=== PATIENT | male | born 1985 | race Caucasian/White ===

== ENCOUNTER 2020-09-15 17:12 | Emergency (ER) | payer SELFPAY ==
[~2020-09-15] VITALS: Ht 160 cm; Wt 70.4 kg
[2020-09-15] MEDS ORDERED: TETANUS, DIPHTHERIA, PERTUSSIS VAC/PF 0.5ML (>7YR OLD) IM ONE (18:45)
[2020-09-15] MEDS ORDERED: ACETAMINOPHEN 325MG TABLET PO ONE (18:45)
[2020-09-15] MEDS ORDERED: LIDOCAINE HCL/EPINEPHRINE 1%-EPI 1:100,000 20 ML VIAL INFIL ONE (18:45)
[2020-09-15 20:58] VITALS: BP 120/79
== END 2020-09-15 20:59 | disposition home or self-care (01) ==
LOC: ER 17:12
DX: S01.01XA Laceration without foreign body of scalp, initial encounter (principal); Y08.02XA Assault by strike by baseball bat, initial encounter; Y93.89 Activity, other specified; Y92.89 Other specified places as the place of occurrence of the external cause; Z23 Encounter for immunization; I50.9 Heart failure, unspecified; I25.10 Atherosclerotic heart disease of native coronary artery without angina pectoris
CPT/HCPCS: 12014; 70450; 90471; 90715; 93005; 99284; J3490

== ENCOUNTER 2020-09-20 10:33 | Emergency (ER) | payer MEDICAID ==
[~2020-09-20] VITALS: Ht 154.9 cm; Wt 72.0 kg
[2020-09-20 11:26] VITALS: BP 119/81
== END 2020-09-20 11:28 | disposition home or self-care (01) ==
LOC: ER 10:33
DX: Z48.00 Encounter for change or removal of nonsurgical wound dressing (principal)
CPT/HCPCS: 99281

== ENCOUNTER 2020-10-04 11:44 | Emergency (ER) | payer MEDICAID ==
[~2020-10-04] VITALS: Ht 160 cm; Wt 69.0 kg
[2020-10-04 11:45] VITALS: BP 118/74
== END 2020-10-04 12:30 | disposition home or self-care (01) ==
LOC: ER 11:44
DX: Z48.02 Encounter for removal of sutures (principal)
CPT/HCPCS: 99281; Z7610

== ENCOUNTER 2021-12-20 23:12 | Inpatient (IN) | payer SELFPAY ==
[~2021-12-20] VITALS: Ht 165.1 cm; Wt 80.0 kg
[2021-12-21] MEDS ORDERED: MORPHINE SULFATE 4 MG/ML CPJ (NOT FOR IM USE) IV STA (00:08)
[2021-12-21] MEDS ORDERED: ONDANSETRON HCL 4MG/2ML INJ IV STA (00:08)
[2021-12-21] MEDS ORDERED: CARVEDILOL 3.125 MG TABLET PO ONE (00:15)
[2021-12-21] MEDS ORDERED: CEFTRIAXONE 1 G PREMIX 50 ML IV ONE (00:15)
[2021-12-21] MEDS ORDERED: AZITHROMYCIN 500MG/250ML 250 ML IV ONE (00:15)
[2021-12-21] MEDS ORDERED: FUROSEMIDE 40MG/4ML VIAL IVP ONE (00:15)
[2021-12-21] MEDS ORDERED: DEXAMETHASONE 10 MG/ML VIAL IV ONE (01:15)
[2021-12-21 01:29] LABS: BASOPHILS % 0.2 % (0.0-2.0); HEMATOCRIT. 44.6 % (42.0-52.0); HEMOGLOBIN. 14.9 g/dL (14.0-18.0); LYMPHOCYTES % 9.4 % (20.0-50.0); MEAN CORPUSCULAR HEMOGLOBIN 28.7 pg (28.0-32.0); MEAN CORPUSCULAR VOLUME 86.1 fL (80.0-94.0); MEAN PLATELET VOLUME 10.9 fl (7.4-10.4); MONOCYTES % 2.4 % (2.0-8.0); PLATELET 91 x1000/uL (130-400); RED BLOOD CELL COUNT 5.18 mill/uL (4.7-6.1); RED CELL DISTRIBUTION WIDTH 15.6 % (11.6-14.6)
[2021-12-21 03:08] LABS: CHLORIDE 89 mEq/L (98-107)
[2021-12-21] MEDS ORDERED: SODIUM CHLORIDE 0.9% 500 ML IV NR (03:15)
[2021-12-21] MEDS ORDERED: POTASSIUM CHLORIDE INJ 40 MEQ in DEXT 5% WATER 250 ML IV ONE (03:15)
[2021-12-21] MEDS ORDERED: POTASSIUM CHLORIDE 20MEQ TABLET SR PO NR (03:15)
[2021-12-21] MEDS ORDERED: NOREPINEPHRINE 8 MG in DEXT 5% WATER 242 ML IV PRN (04:45)
[2021-12-21] MEDS ORDERED: EPINEPHRINE 5 MG in SODIUM CHLORIDE 0.9% 245 ML IV STA (04:52)
[2021-12-21] MEDS ORDERED: NOREPINEPHRINE 8MG/250ML PMX 250 ML IV STA (04:52)
[2021-12-21] MEDS ORDERED: VASOPRESSIN 20 UNIT in SODIUM CHLORIDE 0.9% 99 ML STA (04:52)
[2021-12-21] MEDS ORDERED: SODIUM CHLORIDE 0.9% 1,000 ML IV ONE (05:00)
[2021-12-21] MEDS ORDERED: VASOPRESSIN 20 UNIT in SODIUM CHLORIDE 0.9% 99 ML IV PRN (05:30)
[2021-12-21] MEDS: KCL 20MEQ/100ML X 2 FOR TOTAL KCL 40MEQ/200ML IV SCH ×2 (05:30→06:59)
[2021-12-21] MEDS: EPINEPHRINE 5 MG in SODIUM CHLORIDE 0.9% 245 ML IV PRN ×2 (05:43→09:02)
[2021-12-21 06:48] LABS: BG BASE EXCESS -15.9 mmol/L (-2.0-2.0); BG DEOXYHEMOGLOBIN 52.9 % (0.0-5.0); BG FRACTION INSPIRED OXYGEN 100; BG HCO3 ACT 15.9 mmol/L (22.0-26.0); BG METHEMOGLOBIN 0.2 % (0.0-1.5); BG OXYGEN SATURATION 46.5 % (92.0-98.5); BG OXYHEMOGLOBIN 45.9 % (94.0-97.0); BG PCO2 63.7 mmHg (35.0-45.0); BG PH 7.015 (7.350-7.450); BG PO2 41.6 mmHg (75.0-100.0); BG SAMPLE SITE RIGHT BRACHIAL; BG VENT MODE VENT - AC
[2021-12-21] MEDS: NOREPINEPHRINE 8 MG in DEXT 5% WATER 242 ML IV PRN ×2 (07:17→09:02)
[2021-12-21] MEDS ORDERED: HYDROCODONE/ACETAMINOPHEN 5/325MG TABLET PO PRN (08:15)
[2021-12-21] MEDS ORDERED: ALBUTEROL 6.7GM HFA INHALER ORI PRN (08:15)
[2021-12-21] MEDS ORDERED: CLONIDINE 0.1MG TABLET PO PRN (08:15)
[2021-12-21] MEDS ORDERED: MAGNESIUM/ALUMINUM HYDROXIDE/SIMETHICONE 30ML UDC PO PRN (08:15)
[2021-12-21] MEDS ORDERED: ACETAMINOPHEN 325MG TABLET PO PRN (08:15)
[2021-12-21] MEDS ORDERED: NALOXONE HCL 0.4MG/ML VIAL IV PRN (08:30)
[2021-12-21] MEDS ORDERED: SODIUM BICARBONATE 8.4% 1 MEQ/ML 50ML SYR IV ONE (08:38)
[2021-12-21] MEDS ORDERED: EPINEPHRINE 0.1MG/ML (1:10,000) 10ML SYR ONE (08:38)
[2021-12-21] MEDS ORDERED: PANTOPRAZOLE SODIUM 40 MG/VIAL IV SCH (09:00)
[2021-12-21] MEDS ORDERED: EPINEPHRINE 10 MG in SODIUM CHLORIDE 0.9% 250 ML IV PRN (09:00)
[2021-12-21] MEDS ORDERED: ENOXAPARIN 40MG/0.4ML SYR SUBCUT SCH (09:00)
[2021-12-21] MEDS ORDERED: PHENYLEPHRINE 100 MG in DEXT 5% WATER 240 ML IV PRN (09:00)
[2021-12-21] MEDS ORDERED: NOREPINEPHRINE 32 MG in DEXTROSE 5% WATER 250 ML IV PRN (09:00)
[2021-12-21 09:14] LABS: CHLORIDE 91 mEq/L (98-107)
[2021-12-21] MEDS ORDERED: FENTANYL CITRATE/PF 2,500 MCG in SODIUM CHLORIDE 0.9% 200 ML IV PRN (09:15)
[2021-12-21 09:19] LABS: HEMATOCRIT. 42.6 % (42.0-52.0); HEMOGLOBIN. 13.3 g/dL (14.0-18.0); MEAN CORPUSCULAR HEMOGLOBIN 28.5 pg (28.0-32.0); MEAN CORPUSCULAR VOLUME 91.4 fL (80.0-94.0); RED BLOOD CELL COUNT 4.67 mill/uL (4.7-6.1); RED CELL DISTRIBUTION WIDTH 15.8 % (11.6-14.6)
[2021-12-21 09:48] VITALS: BP 0/0
[2021-12-21 10:17] LABS: PHOSPHORUS 10.3 mg/dL (2.5-4.9)
[2021-12-21] MEDS ORDERED: VECURONIUM BROMIDE 10 MG/VIAL IV ONE (10:28)
[2021-12-21] MEDS ORDERED: ETOMIDATE 2MG/ML 10ML VIAL IV ONE (10:28)
[2021-12-21 10:35] LABS: NUCLEATED RED BLOOD CELLS 8 /100 WBC
[2021-12-21 10:36] LABS: PLATELET ESTIMATE MARKEDLY DECREASED
[2021-12-21 10:39] LABS: MEAN PLATELET VOLUME 9.8 fl (7.4-10.4)
[2021-12-21 10:41] LABS: PLATELET 35 x1000/uL (130-400)
[2021-12-21] MEDS ORDERED: METOCLOPRAMIDE HCL 10MG/2ML VIAL IV SCH (12:00)
[2021-12-21] MEDS ORDERED: CEFTRIAXONE 1 G PREMIX 50 ML IV SCH (21:00)
[2021-12-21] MEDS ORDERED: AZITHROMYCIN 500 MG in DEXT 5% WATER 250 ML IV SCH (23:00)
[2021-12-22] MEDS ORDERED: DEXAMETHASONE 10 MG/ML VIAL IV SCH (06:00)
== END 2021-12-21 12:09 | DRG 720 ==
LOC: ER 23:12 → EDBEDREQ 12-21 04:24 → EDBEDREQSVC 12-21 04:59 → MICUSO 12-21 06:15
PROVIDERS: ADMIT Internal Medicine; ATTEND Internal Medicine
PROC: 5A12012 Performance of Cardiac Output, Single, Manual (ICD-10-PCS; principal; 2021-12-21)
PROC: 5A1935Z Respiratory Ventilation, Less than 24 Consecutive Hours (ICD-10-PCS; 2021-12-21)
PROC: 06HY33Z Insertion of Infusion Device into Lower Vein, Percutaneous Approach (ICD-10-PCS; 2021-12-21)
PROC: B54BZZA Ultrasonography of Right Lower Extremity Veins, Guidance (ICD-10-PCS; 2021-12-21)
PROC: 0BH17EZ Insertion of Endotracheal Airway into Trachea, Via Natural or Artificial Opening (ICD-10-PCS; 2021-12-21)
DX: A41.89 Other specified sepsis (principal); I46.9 Cardiac arrest, cause unspecified; J12.82 Pneumonia due to coronavirus disease 2019; J96.01 Acute respiratory failure with hypoxia; J96.02 Acute respiratory failure with hypercapnia; Z66 Do not resuscitate; R65.21 Severe sepsis with septic shock; R57.0 Cardiogenic shock; E44.1 Mild protein-calorie malnutrition; I21.4 Non-ST elevation (NSTEMI) myocardial infarction; I50.9 Heart failure, unspecified; I42.9 Cardiomyopathy, unspecified; I11.0 Hypertensive heart disease with heart failure; U07.1 COVID-19; E87.2 Acidosis; E87.6 Hypokalemia; N17.9 Acute kidney failure, unspecified; R74.01 Elevation of levels of liver transaminase levels; Z91.14 Patient's other noncompliance with medication regimen; Z68.29 Body mass index [BMI] 29.0-29.9, adult
CPT/HCPCS: 36415; 36600; 71045; 80053; 82375; 82805; 83605; 83735; 83880; 84100; 84145; 84484; 85025; 87426; 87804; 93005; 94003; 99291; C9113; J0456; J0696; J1100; J1650; J1940; J2270; J2370; J2405; J3480; J3490; J7030; J7050; J7060